=== PATIENT | female | born 1975 | race Caucasian/White ===

== ENCOUNTER 2017-02-08 08:00 | Outpatient (CLI) | payer BC | END 2017-02-08 08:01 | disposition home or self-care (01) | LOC: BICMAMMO 08:00 | PROVIDERS: ATTEND Obstetrics & Gynecology | DX: Z12.31 Encounter for screening mammogram for malignant neoplasm of breast (principal); Z80.3 Family history of malignant neoplasm of breast | CPT/HCPCS: 77063; 77067; G0202 ==

== ENCOUNTER 2018-06-21 11:17 | Outpatient (CLI) | payer BC ==
--- NOTE | 2018-06-21 12:11 | MRI ---
MR the lumbar spine without contrast INDICATION: Back pain for 6 weeks COMPARISON: None. TECHNIQUE: Multiplanar multisequence MR images were obtained of lumbar spine without IV contrast. FINDINGS: Bone marrow: There is diffuse intermediate to low marrow signal involving the lumbosacral spine. Distal spinal cord and conus: There is slight prominence of the central canal of the spinal cord at t he T11 and T12 levels with the central canal measuring approximately 1.65 mm in its greatest AP dimension. The conus seen to terminate at L1. Visualized retroperitoneum and paraspinal soft tissues: Normal. Vertebral levels: L5-S1: There is a mild broad-based disc bulge and bilateral facet joint degenerative change. There is a 9 mm left paracentral, left foraminal annular fissure.. L4-5: There is an asymmetric to the left broad-based disc bulge with facet hypertrophy inducing moder ate right lateral recess narrowing with potential for impingement of the traversing right L5 nerve root. There is mild right neural foraminal narrowing due to the disc bulge. L3-4: No appreciable central canal or neuroforaminal narrowing. L2-3: No appreciable central canal or neuroforaminal narrowing. L1-L2: No appreciable central canal or neuroforaminal narrowing. T12-L1: No appreciable central canal or neuroforaminal narrowing. IMPRESSION: 1. Moderate right lateral recess narrowing at L4-5 due to an asymmetric to the right broad-based disc bulge. This has potential for impingement of the traversing right L5 nerve root. There is mild right neuroforaminal narrowing at L4-5 due to broad-based disc bulge. 2. Dilatation of the central canal of the spinal cord seen involving the T11 and T12 vertebral levels . Recommend an MR the thoracic spine with and without contrast to evaluate for syringohydromyelia. 3. Diffuse intermediate to low marrow signal abnormality involving the lumbosacral spine can be seen with red marrow hyperplasia which can be seen with chronic anemia, obesity and smoking. Recommend correlation. Recommend correlation with a CBC.
== END 2018-06-21 11:18 | disposition home or self-care (01) ==
LOC: TBSIIMAG 11:17
PROVIDERS: ATTEND Neurological Surgery
DX: M51.16 Intervertebral disc disorders with radiculopathy, lumbar region (principal); M48.061 Spinal stenosis, lumbar region without neurogenic claudication; R93.7 Abnormal findings on diagnostic imaging of other parts of musculoskeletal system
CPT/HCPCS: 72148

== ENCOUNTER 2019-07-17 09:01 | Outpatient (CLI) | payer OTHER ==
--- NOTE | 2019-07-17 10:04 | MMO ---
Bilateral MAMMO Bilat Screen [facility]. CLINICAL HISTORY: Patient is 43 years old and is seen for screening. The patient has the following family history of breast cancer: maternal aunt and paternal aunt. The patient has no personal history of cancer. The patient has a history of bilateral Implants in 2005. VIEWS: The views performed were: bilateral craniocaudal; bilateral craniocaudal with tomosynthesis; bilateral mediolateral oblique; bilateral mediolateral oblique with tomosynthesis; and bilateral Implant displaced with tomosynthesis. FILMS COMPARED: The present examination has been compared to prior imaging studies performed at [facility] on 01/23/2015, 02/04/2016 and 02/08/2017. This study has been interpreted with the assistance of computer-aided detection. MAMMOGRAM FINDINGS: The breasts are heterogeneously dense, which could obscure a lesion on mammography. There are no suspicious masses, suspicious calcifications, or new areas of architectural distortion. IMPRESSION: THERE IS NO MAMMOGRAPHIC EVIDENCE OF MALIGNANCY. A ROUTINE FOLLOW-UP MAMMOGRAM IN 1 YEAR IS RECOMMENDED. THE RESULTS OF THIS EXAM WERE SENT TO THE PATIENT. ACR BI-RADS Category 1 - Negative MAMMOGRAPHY NOTE: 1. A negative mammogram report should not delay a biopsy if a dominant of clinically suspicious mass is present. 2. Approximately 10% to 15% of breast cancers are not detected by mammography. 3. Adenosis and dense breasts may obscure an underlying neoplasm. Reported by: ELISABET DEVINE MD Electonically Signed: [id number]
== END 2019-07-17 09:02 | disposition home or self-care (01) ==
LOC: BICMAMMO 09:01
PROVIDERS: ATTEND Obstetrics & Gynecology
DX: Z12.31 Encounter for screening mammogram for malignant neoplasm of breast (principal); Z80.3 Family history of malignant neoplasm of breast; Z98.82 Breast implant status
CPT/HCPCS: 77063; 77067

== ENCOUNTER 2020-07-31 08:07 | Outpatient (CLI) | payer OTHER | END 2020-07-31 08:08 | disposition home or self-care (01) | LOC: BICMAMMO 08:07 | PROVIDERS: ATTEND Obstetrics & Gynecology | DX: Z12.31 Encounter for screening mammogram for malignant neoplasm of breast (principal); Z80.3 Family history of malignant neoplasm of breast; Z98.82 Breast implant status | CPT/HCPCS: 77063; 77067 ==

== ENCOUNTER 2021-08-13 08:31 | Outpatient (CLI) | payer OTHER | END 2021-08-13 08:32 | disposition home or self-care (01) | LOC: BICMAMMO 08:31 | PROVIDERS: ATTEND Obstetrics & Gynecology | DX: Z12.31 Encounter for screening mammogram for malignant neoplasm of breast (principal); Z91.89 Other specified personal risk factors, not elsewhere classified; Z98.82 Breast implant status | CPT/HCPCS: 77063; 77067 ==